=== PATIENT | female | born 1975 | race Two or more races ===

== ENCOUNTER 2021-08-14 15:12 | Inpatient (IN) | payer SELFPAY ==
[2021-08-14 15:50] VITALS: BMI 22.1
[2021-08-14 19:39] LABS: BASO % 0.6 % (0-2.0); EOS % 1.5 % (0-4.5); HEMATOCRIT 24.5 % (32.4-45.2); HEMOGLOBIN 7.2 GM/dL (10.7-15.3); LYMPH % 40.3 % (8-40); MCHC 29.6 g/dl (32.0-36.0); MEAN CELL VOLUME 61.8 fl (80-96); MEAN PLT VOLUME 7.1 fl (7.5-11.1); MONO % 9.7 % (3.8-10.2); NEUT % 47.9 % (42.8-82.8); PLATELET COUNT 591 10^3/uL (134-434); RBC 3.96 M/mm3 (3.60-5.2); RDW 17.8 % (11.6-15.6); WHITE BLOOD COUNT 4.1 K/mm3 (4.0-10.0)
[2021-08-14 19:45] LABS: MCH 18.3 pg (25.7-33.7)
[2021-08-14 19:53] LABS: CALCIUM 9.1 mg/dL (8.5-10.1)
[2021-08-14 19:57] LABS: CREATININE 0.5 mg/dL (0.55-1.3)
[2021-08-14 19:58] LABS: TOT PROT 7.2 g/dl (6.4-8.2)
[2021-08-14 19:59] LABS: BILIRUBIN,TOTAL 0.3 mg/dL (0.2-1)
[2021-08-14 20:25] LABS: ANISOCYTOSIS 3+; MACROCYTOSIS 0
[2021-08-15 03:06] VITALS: TEMP 97.8
[2021-08-15 07:44] LABS: BASO % 3.3 % (0-2.0); EOS % 1.5 % (0-4.5); HEMATOCRIT 27.4 % (32.4-45.2); HEMOGLOBIN 8.4 GM/dL (10.7-15.3); LYMPH % 33.1 % (8-40); MCH 20.3 pg (25.7-33.7); MCHC 30.5 g/dl (32.0-36.0); MEAN CELL VOLUME 66.6 fl (80-96); MEAN PLT VOLUME 7.7 fl (7.5-11.1); MONO % 9.2 % (3.8-10.2); NEUT % 52.9 % (42.8-82.8); PLATELET COUNT 533 10^3/uL (134-434); RBC 4.12 M/mm3 (3.60-5.2); RDW 18.8 % (11.6-15.6); WHITE BLOOD COUNT 3.8 K/mm3 (4.0-10.0)
[2021-08-15 08:11] LABS: BLOOD UREA NITROGEN 10.4 mg/dL (7-18); CALCIUM 8.8 mg/dL (8.5-10.1); MAGNESIUM 2.5 mg/dL (1.8-2.4)
[2021-08-15 08:14] LABS: CREATININE 0.5 mg/dL (0.55-1.3); PHOSPHOROUS 3.6 mg/dL (2.5-4.9)
[2021-08-15] MEDS ORDERED: DOCUSATE SODIUM 100 MG CAPSULE (FP) PO PRN (10:09)
[2021-08-15] MEDS ORDERED: FOLIC ACID 1 MG TABLET (FP) ONE (10:28)
[2021-08-15 10:36] VITALS: BP 121/77; PULSE 70
[2021-08-15] MEDS ORDERED: FERROUS SO4 325 MG TABLET (FP) PO SCH (12:00)
[2021-08-16] MEDS ORDERED: FOLIC ACID 1 MG TABLET (FP) PO SCH (10:00)
== END 2021-08-15 10:38 | disposition home or self-care (01) | DRG 663 ==
LOC: JER 15:12 → JERBED 22:14
PROVIDERS: ADMIT Internal Medicine; ATTEND Nurse Practitioner Acute Care
PROC: 30233N1 Transfusion of Nonautologous Red Blood Cells into Peripheral Vein, Percutaneous Approach (ICD-10-PCS; principal; 2021-08-15)
DX: D50.9 Iron deficiency anemia, unspecified (principal); R06.02 Shortness of breath; N92.0 Excessive and frequent menstruation with regular cycle; R00.0 Tachycardia, unspecified
CPT/HCPCS: 0241U-QW; 36415; 36430; 71046-TC-FY; 71275-TC; 76856-TC; 80048; 80053; 82272; 83540; 83550; 83735; 84100; 84484; 84703; 85025; 85045; 85379; 86850; 86900; 86901; 86922; 93005; 93010; 99285-25; P9058; Q9967

== ENCOUNTER 2023-08-13 14:02 | Emergency (ER) | payer OTHER ==
[2023-08-13 14:16] VITALS: BP 107/69; PULSE 72; RESP 18; TEMP 98.6; BMI 22.1
[2023-08-13] MEDS ORDERED: ACETAMINOPHEN INJECTION 100 ML IVPB ONE (15:32)
[2023-08-13] MEDS ORDERED: ONDANSETRON 4 MG/2 ML VIAL ONE (15:33)
[2023-08-13 15:38] LABS: BASO % 1.9 % (0-2.0); EOS % 2.2 % (0-4.5); HEMATOCRIT 28.5 % (32.4-45.2); HEMOGLOBIN 8.6 GM/dL (10.7-15.3); MCHC 30.3 g/dl (32.0-36.0); MEAN CELL VOLUME 65.6 fl (80-96); MEAN PLT VOLUME 7.1 fl (7.5-11.1); MONO % 7.7 % (3.8-10.2); NEUT % 56.2 % (42.8-82.8); PLATELET COUNT 419 10^3/uL (134-434); RBC 4.34 M/mm3 (3.60-5.2); WHITE BLOOD COUNT 4.2 K/mm3 (4.0-10.0)
[2023-08-13 15:39] LABS: MCH 19.9 pg (25.7-33.7)
[2023-08-13] MEDS: ONDANSETRON 4 MG/2 ML VIAL IVPUSH ONE (15:42)
[2023-08-13] MEDS: ACETAMINOPHEN 1000 MG/100 ML BAG IVPB ONE (15:42)
[2023-08-13] MEDS: LACTATED RINGERS SOLUTION 1000 ML INFUS.BAG IV ONE (15:42)
[2023-08-13 15:55] LABS: CHLORIDE 109 mmol/L (98-107); SODIUM 138 mmol/L (136-145)
[2023-08-13 15:59] LABS: CALCIUM 8.5 mg/dL (8.5-10.1)
[2023-08-13 16:00] LABS: ALBUMIN 3.4 g/dl (3.4-5.0); ANION GAP 1 mmol/L (4-13); BLOOD UREA NITROGEN 12.8 mg/dL (7-18); CO2 28 mmol/L (21-32); GLUCOSE,RANDOM 100 mg/dL (74-106)
[2023-08-13 16:03] LABS: BILIRUBIN,TOTAL 0.2 mg/dL (0.2-1); CREATININE 0.7 mg/dL (0.55-1.3); SGPT/ALT 16 U/L (13-61); TOT PROT 6.6 g/dl (6.4-8.2)
[2023-08-13 16:04] LABS: ALK PHOS 37 U/L (45-117)
[2023-08-13 16:07] LABS: SGOT/AST < 3 U/L (15-37)
[2023-08-13 16:18] LABS: ANISOCYTOSIS 1+; MACROCYTOSIS 0
[2023-08-13] MEDS ORDERED: MECLIZINE HCL 25 MG TABLET (FP) ONE (16:58)
[2023-08-13] MEDS: MECLIZINE HCL 25 MG TABLET (FP) PO ONE (16:59)
[2023-08-13] MEDS: METOCLOPRAMIDE HCL INJECTION 10 MG/2 ML VIAL IVPUSH ONE (17:58)
== END 2023-08-13 18:07 | disposition home or self-care (01) ==
LOC: JER 14:02
PROC: 3E033NZ Introduction of Analgesics, Hypnotics, Sedatives into Peripheral Vein, Percutaneous Approach (ICD-10-PCS; principal; 2023-08-13)
PROC: 3E033GC Introduction of Other Therapeutic Substance into Peripheral Vein, Percutaneous Approach (ICD-10-PCS; 2023-08-13)
DX: R42 Dizziness and giddiness (principal); R11.0 Nausea; R07.89 Other chest pain; Z20.822 Contact with and (suspected) exposure to COVID-19
CPT/HCPCS: 0241U-QW; 36415; 71045-TC-FY; 80053; 83735; 84484; 84703; 85025; 86850; 86900; 86901; 93005; 93010; 99285-25; J0131